=== PATIENT | male | born 1945 | race Caucasian/White ===

== ENCOUNTER 2022-10-05 09:59 | Outpatient (CLI) | payer MEDICARE, SELFPAY ==
--- NOTE | ~2022-10-05 | US_ITS ---
Abdominal Sonogram: Real-time sonographic imaging of the abdomen was performed. Clinical History: Abdominal distention Findings: The liver appears mildly echogenic, with no evidence of mass lesion or bile duct dilatatio n. Main portal vein demonstrates normal direction of flow. The spleen is normal in size without evide nce of focal lesion. The gallbladder is absent, compatible with prior cholecystectomy. The common bi le duct measures 6 mm. The visualized pancreas, aorta, and IVC are unremarkable. The right kidney m easures 12.9 cm in length and the left kidney measures 11.3 cm. There is no hydronephrosis or renal calculus. Impression: Probable fatty infiltration of the liver. Reviewed, dictated and finalized at location [facility] Impression: Probable fatty infiltration of the liver.
== END 2022-10-05 10:00 | disposition home or self-care (01) ==
PROVIDERS: PCP Family Medicine; Visit Provider Physician Assistant
DX: R14.0 Abdominal distension (gaseous) (principal)
CPT/HCPCS: 76700

== ENCOUNTER 2024-06-27 23:12 | Emergency (ER) | payer MEDICARE, SELFPAY ==
--- NOTE | ~2024-06-27 | CT_ITS ---
History: Fall PROCEDURE: CT cervical spine without intravenous contrast. COMPARISON: None TECHNIQUE: Multiple contiguous axial images of the cervical spine were performed without the administration of i ntravenous contrast. DLP: 413.35 mGy-cm FINDINGS: Straightening and slight reversal of the normal curvature of the cervical spine is identified, likely muscular versus degenerative in origin. No acute fractures are present. Significant facet arthropathy is present. Anterior and posterior osteophyte formation is present with disc space narrowing and vacuum phenomena . Biapical scarring is present. Calcified atherosclerotic disease is noted. No soft tissue abnormality is present. The airway is patent. Impression: Significant degenerative disease, without acute fracture. Reviewed, dictated and finalized at location A. Impression: Significant degenerative disease, without acute fracture.
--- NOTE | ~2024-06-27 | CT_ITS ---
History: Fall, confusion PROCEDURE: CT head without contrast. COMPARISON: None TECHNIQUE: Axial imaging of the head performed from the skull base to the vertex without IV contrast. Sagittal a nd coronal reformations obtained. DLP: 529.67 mGy-cm FINDINGS: The ventricles are enlarged, equal to the degree of sulcal prominence, findings consistent with a sen escent brain. There is no mass, mass effect or midline shift. There is no abnormal extra-axial fluid collection or intracranial hemorrhage. Visualized paranasal sinuses are clear. The mastoid air cells are well aerated. There are no fractures within the overlying cranium. Impression: Normal aging brain, without acute intracranial hemorrhage or suspicious mass effect. Reviewed, dictated and finalized at location A. Impression: Normal aging brain, without acute intracranial hemorrhage or suspicious mass ef fect.
[2024-06-27 23:13] VITALS: BP 110/76; PULSE 67; RESP 17; TEMP 36.6; O2SAT 99
[2024-06-27 23:27] VITALS: BP 110/76; PULSE 68; RESP 20; O2SAT 98
--- NOTE | 2024-06-27 23:32 | PC.NURSE ---
pt said pt normally drinks 5-6 drinks minimum per night. some times wine, some scotch. Pt also known to hide his drinking from the /sister.
--- NOTE | 2024-06-27 23:32 | PC.NURSE ---
pt placed in c-collar at time of arrival to ed, and taken straight to ct.
[2024-06-27 23:36] LABS: Glucose Point of Care 115 mg/dl (65-105)
[2024-06-27 23:39] LABS: Basophils Absolute Auto 0.1 K/mm3 (0.0-0.1); Basophils Percent Auto 1.7 % (0.2-1.2); Eosinophils Absolute Auto 0.3 K/mm3 (0-0.3); Eosinophils Percent Auto 5.2 % (0-4.4); Hematocrit 35.8 % (42.0-52.0); Hemoglobin 12.8 g/dL (14.0-18.0); Immature Granulocyte Absolute 0.02 K/mm3 (0.00-0.031); Immature Granulocyte Percent A 0.4 % (0-0.5); Lymphocytes Percent Auto 40.5 % (18.3-44.2); Mean Corpuscular HGB Conc 35.8 g/dl (32-36); Mean Corpuscular Hemoglobin 40.9 pg (26-34); Mean Corpuscular Volume 114.4 fl (80-100); Mean Platelet Volume 9.7 fl (7.4-10.4); Monocytes Absolute Auto 1.1 K/mm3 (0.1-0.6); Monocytes Percent Auto 20.4 % (2.6-8.5); Neutrophils Absolute Auto 1.7 K/mm3 (1.3-6.7); Neutrophils Percent Auto 31.8 % (45.5-73.1); Platelet Count Result 193 k/mm3 (150-375); Red Blood Count 3.13 M/mm3 (4.6-6.20); Red Cell Distribution Width 13.1 % (11.5-14.5); White Blood Count 5.2 K/mm3 (4.5-10.0)
[2024-06-27 23:46] VITALS: BP 113/74; PULSE 69; PULSE 71; RESP 19; RESP 21; O2SAT 94
--- NOTE | 2024-06-27 23:46 | ED.FALL ---
HPI - Fall General Chief Complaint: Fall Stated Complaint: glf with loc History of Present Illness HPI Narrative: 78-year-old male presenting to the emergency department for evaluation for a ground level fall. states the patient does drink approximately 7 glasses of wine a night. Patient was drinking alcohol tonight. heard a thump and went into the room and found him lying on conscious on the floor with a broken glass of wine. Patient sustained no lacerations from the 1 glass. states she was unable to wake the patient up and was unable to feel a pulse. EMS was called. Patient was A&O x1 on initial evaluation but upon arrival to the emergency department he is back to A&O x3. Patient does admit to alcohol intoxication. Patient is typically A&O x4. Related Data Home Medications Medication Instructions Recorded Confirmed mecobalamin (vitamin B12) 1,000 1,000 mcg sublingual DAILY 10/06/22 08/17/23 mcg disintegrating tablet,sublingual Allergies Allergy/AdvReac Type Severity Reaction Status Date / Time Iodine and Iodide Containing Allergy Mild rash/ hives Verified 02/15/24 13:40 Produc articaine Allergy Unknown Dyspnea / Verified 02/15/24 13:40 SOB epinephrine Allergy Unknown Dyspnea / Verified 02/15/24 13:40 SOB Gadolinium-Containing Allergy Unknown Rash Verified 02/15/24 13:40 Contrast Medi procaine Allergy Unknown shortness Verified 02/15/24 13:40 of breath ALL VIV Allergy Unknown RAPID HR Uncoded 02/15/24 13:40 ARTICAINE HCL Allergy Unknown RAPID HR Uncoded 02/15/24 13:40 Review of Systems Review of Systems: All systems reviewed & are unremarkable except as noted in HPI and below PMFSH Surgical History Surgical History Hx of colonoscopy Family History Family History Other Hypertension Social History Social History (Updated 08/17/23 @ 14:37 by Maeve Roman CMA) Smoking status: Current some day smoker Tobacco type: cigars Alcohol intake: current Substance use: never Lack of Transportation: No Lack of Food: Never True Current Housing: I Have Housing Concerned About Future Housing: No Difficulty Paying Gas/Electric Bills: No Difficulty Paying for Meds: No Currently Unemployed: No Education: Trade/Vocational Certificate Difficulty w/ Childcare or Family Care: No Living arrangements: with family Occupation/Education: retired Exam Narrative: APPEARANCE: Well appearing, no pain, no distress, well-nourished. HEAD: normocephalic, atraumatic. EYES: PERRLA/EOMI, conjunctivae clear. NOSE: Normal no drainage EARS:TMS clear with good light reflex. THROAT: Pharynx clear, no exudate. NECK: Supple. No adenopathy, no masses. RESPIRATORY: Airway patent, respirations nonlabored. Clear to auscultation bilaterally, no rales, rhonchi, wheezing. CARDIOVASCULAR: Regular rate and rhythm without murmurs rubs or gallops. ABDOMINAL: Soft, nontender, nondistended, normal bowel sounds MUSCULOSKELETAL: Moves all extremities. Strength/ROM intact, No edema, No calf tenderness. NEURO: Alert. Cranial nerves II through XII intact. SKIN: Warm, dry. Normal Color Course Course Emergency Course: Patient was able to ambulate it is baseline. Patient family were offered further observation but they did prefer for the patient to be discharged home. Vital Signs Vital signs: Vital Signs Temperature 97.8 F 06/27/24 23:13 Pulse Rate 67 06/27/24 23:13 Respiratory Rate 17 06/27/24 23:13 Blood Pressure 110/76 06/27/24 23:13 Pulse Oximetry 99 06/27/24 23:13 Oxygen Delivery Room Air 06/27/24 23:13 Temperature 97.7 F 06/28/24 02:50 Pulse Rate 76 06/28/24 02:50 Respiratory Rate 16 06/28/24 02:50 Blood Pressure 136/76 06/28/24 02:50 Pulse Oximetry 98 06/28/24 02:50 Oxygen Delivery Room Air 06/27/24 23:1
[2024-06-27 23:49] LABS: Alanine Aminotransferase 72 U/L (6-50); Albumin Level 4.1 g/dL (3.5-5.1); Alkaline Phosphatase 59 U/L (38-126); Anion Gap 11 mmol/L (4-12); Aspartate Amino Transferase 77 U/L (17-59); Bilirubin,Total 1.2 mg/dL (0.2-1.3); Blood Urea Nitrogen 13 mg/dL (9-20); Calcium 9.6 mg/dL (8.4-10.2); Carbon Dioxide 22 mmol/L (22-30); Chloride 106 mmol/L (98-107); Estimated CRCL calculation 54 ml/min; Estimated Glomerular Filt Rate > 60; Glucose 109 mg/dL (65-110); Potassium 3.4 mmol/L (3.4-5.0); Sodium 139 mmol/L (137-145)
[2024-06-27 23:50] LABS: INR 1.1; Prothrombin Time 14.7 Seconds (11.1-14.7)
[2024-06-27 23:51] LABS: Partial Thromboplastin Time 29.2 Seconds (22.3-36.8)
[2024-06-27 23:59] LABS: Macrocytosis 1+ (NORMAL); Platelet Estimate Adequate (Adequate); Schistocytes None Seen
[2024-06-28] VITALS (12 sets, daily range): BP systolic 95–136; BP diastolic 49–76; PULSE 70–86; RESP 16–25; TEMP 36.5; O2SAT 92–98
[2024-06-28 00:12] LABS: Ethanol 295 mg/dL (<10)
[2024-06-28 00:50] LABS: Add Urine Microscopic? YES; Appearance Urine Clear (Clear); Bacteria Urine None Seen /hpf; Bilirubin Urine Negative (Negative); Blood Urine Negative (Negative); Color Urine Yellow (Yellow); Glucose Urine UA Negative (Negative); Ketones Urine Negative (Negative); Leukocyte Esterase Ur Trace LEU/UL (Negative); Nitrate Urine Negative (Negative); Non Pathogenic Casts 0-2; Protein Urine Negative (Negative); RBC Urine 0-2 /hpf (0-2); Specific Grav Ur 1.008 (1.001-1.035); Squamous Epithelial Cell Urine None Seen /hpf (Few); Urobilinogen Urine 0.2 mg/dL (<2.0); WBC Urine 0-5 /hpf (0-3); pH Urine 5.5 (5.0-9.0)
== END 2024-06-28 03:47 | disposition home or self-care (01) ==
PROVIDERS: Emergency Provider Emergency Medicine; PCP Family Medicine
DX: S09.90XA Unspecified injury of head, initial encounter (principal); F10.129 Alcohol abuse with intoxication, unspecified; Y90.8 Blood alcohol level of 240 mg/100 ml or more; F17.290 Nicotine dependence, other tobacco product, uncomplicated; W19.XXXA Unspecified fall, initial encounter
CPT/HCPCS: 36415; 70450; 72125; 80053; 81001; 82077; 82948; 85025; 85610; 85730; 99284